=== PATIENT | male | born 1955 | race Caucasian/White ===

== ENCOUNTER 2016-05-02 07:32 | Day surgery (SDC) | payer BC ==
--- NOTE | 2016-04-26 13:31 | HP ---
CC: Dr. Aviles HISTORY AND PHYSICAL: DATE OF PLANNED ADMISSION AND SURGERY: 05/02/16 HISTORY OF PRESENT ILLNESS: Mr. Moreno is a 61-year-old white male who is admitted with a left ureteral calculus for cystoscopy, left ureteroscopy, laser lithotripsy, and left ureteral stent placement. Mr. Moreno is a known stone former, and in January 2012, he required a left ureteroscopy and laser lithotripsy of a left ureteral calculus. He did very well postoperatively. On followup renal ultrasounds, he was noted to have a 5 mm calculus in the upper pole calyx of the left kidney. It was observed and because it was asymptomatic and as the stone did not seem to be large, no treatment was recommended. The patient presented for his routine office followup visit about 2 months ago. Renal ultrasound showed that the calculus that was previously seen in the left kidney was not seen anymore. He was then followed with periodic renal ultrasounds and he was noted to have the 5 to 6 mm calculus located in the proximal left ureter about 5 cm distal to the ureteropelvic junction. Because he was asymptomatic, he was observed. He had another renal ultrasound a week prior to this admission and the stone is still in the same position. He has continued to be asymptomatic. The ultrasound showed associated mild left hydronephrosis. Considering that the stone has been in the same position for at least the last 2 months, it is unlikely for it to drop spontaneously and the plan is for endoscopic stone extraction. PAST MEDICAL HISTORY: Past history is relevant for prostate carcinoma diagnosed in January 2009 and he underwent a robotic radical prostatectomy at [facility] in May 2009. He did very well postoperatively. His PSA has remained undetectable and he does not have any continence problems. The patient is otherwise in excellent health. MEDICATIONS: He is on no chronic medications except the tamsulosin which was started 6 weeks ago to help the stone passage. ALLERGIES: He denies any allergies to medications. He denies any cardiac or pulmonary diseases or symptoms. PHYSICAL EXAMINATION GENERAL: Pleasant, healthy and fit-looking white male. VITAL SIGNS: Blood pressure 130/80. HEART: Regular and rhythmic. No murmurs. LUNGS: Clear. ABDOMEN: Soft. No masses, no tenderness, and no CVA tenderness. EXTERNAL GENITALIA: Normal. IMPRESSION: Minimally symptomatic 5 to 6 mm calculus in the proximal left ureter with mild left hydronephrosis with a stone in the same position for the last 2 months. Past history of prostate carcinoma with good result of radical prostatectomy and no evidence of recurrent disease. PLAN: Considering the stone has been in the same position for the last 2 months , it is unlikely for it to drop spontaneously. The plan is to proceed with a left ureteroscopy and laser lithotripsy, and placement of a left ureteral stent. If the ureteroscopy is found to be difficult due to scarring from his surgery, the plan is for staging the procedure with stent placement first and definitive treatment of the stone at a later date. The above was discussed in detail with the patient. All his questions were answered. [id number]/[facility] #: [id number] JUAN
[~2016-05-02 07:32] MED LIST: Buffered Lidocaine 1% SYR 3ML* 3 ML/SYR SYRINGE INTRADERM ONE; Famotidine IV* 10 MG/ML 2 ML (20 mg) IV ONE
[2016-05-02] MEDS ORDERED: Famotidine IV* 10 MG/ML 2 ML (20 mg) ONE (07:41)
[2016-05-02] MEDS ORDERED: cefTRIAXone(*) 2 GM ADDV.VIAL IVPB ONE (07:41)
[2016-05-02] MEDS ORDERED: Iohexol 180 (CONTRAST) 10 ML SDV IV ONE (08:33)
[2016-05-02] MEDS ORDERED: Midazolam* 1 MG/ML 5 ML VIAL (5 MG) ONE (08:46)
[2016-05-02] MEDS ORDERED: fentaNYL* 50 MCG/ML 2 ML VIAL (100 MCG VIAL) ONE (08:46)
[2016-05-02] MEDS ORDERED: Ondansetron INJ* 2 MG/ML VIAL ONE (08:47)
[2016-05-02] MEDS ORDERED: Propofol* 10 MG/ML 20 ML BTL IV PUSH ONE (08:47)
[2016-05-02] MEDS ORDERED: Dexamethasone IV* 4 MG/ML 1 ML (4 MG) ONE (08:47)
[2016-05-02] MEDS ORDERED: Ketorolac INJ* 30 MG/ML 1 ML VIAL ONE (08:47)
[2016-05-02] MEDS ORDERED: Lidocaine 2% PF * 5 ML VIAL ONE (08:47)
[2016-05-02] MEDS ORDERED: DiMENhydriNATE IV* 50 MG/ML VIAL IV PUSH PRN (09:25)
[2016-05-02] MEDS ORDERED: HYDROmorphone INJ* 1 MG/ML CARPUJECT SYRINGE IV PRN (09:25)
[2016-05-02] MEDS ORDERED: Acetaminophen TAB* 325 MG PO PRN (09:25)
[2016-05-02] MEDS ORDERED: oxyCODONE/Acetamin 5/325 MG* TAB PO PRN (09:25)
--- NOTE | 2016-05-02 10:25 | RAD ---
INDICATION: Left ureteral stent placement . 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 COMPARISON: CT January 13, 2012; retrograde examination January 19, 2012 FINDINGS: 20 seconds of fluoroscopy were provided for the urology department. Fluoroscopic spot imaging of the abdomen were obtained for operative control and show placement of ureteral stent in the upper pole of the duplicated collecting system. Both upper and lower pole moieties were cannulated and show no hydronephrosis. CPT II Codes: 6045F (fluoro time doc)
[2016-05-02 11:03] VITALS: BP 132/99
--- NOTE | 2016-05-03 00:59 | OP ---
DATE OF OPERATION: 05/02/16 [facility] DATE OF : 57 SURGEON: Dr. Bai. ANESTHESIOLOGIST: Dr. Mary Lucia ANESTHESIA: General. PRE-OP DIAGNOSIS: Proximal left ureteral calculus (6 to 7 mm). POST-OP DIAGNOSIS: Partial duplication of left kidney, 6 to 7 mm calculus in ureter of upper pole moiety. OPERATIVE PROCEDURE: 1. Cystoscopy. 2. Left ureteroscopy and laser lithotripsy of proximal left ureteral calculus of upper pole moiety. 3. Left retrograde pyelography and placement of left ureteral stent in upper pole moiety. INDICATION FOR PROCEDURE: Mr. Moreno is a 61-year-old white male who is a known stone former who was noted to have a minimally symptomatic and minimally obstructing 6-7 mm proximal left ureteral calculus. The stone was observed for about 2 months and it remained in the same position. Because of the above history, the fact that the stone has not passed and considering its size, the above procedure was advised and accepted. The patient had a radical prostatectomy for prostate carcinoma several years ago and has done very well without recurrent disease. PATHOLOGY AT CYSTOSCOPY: The penile and bulbar urethra looked normal. The external sphincter looked normal. The prostatic urethra was absent. Examination of the bladder showed normal bladder mucosa. The ureteral orifices looked normal. There were no suspicious bladder lesions seen. On fluoroscopy a radio-opaque calculus was noted at the level of the transverse process of L4. At left ureteroscopy a duplication was noted with the 2 ureters meeting at the midureteral level. The calculus was located in the proximal ureter of the upper pole moiety. The calculus was impacted. It measured about 6 to 7 mm and had the gross appearance of calcium oxalate stone. Left retrograde pyelography showed a dilated upper pole moiety and a non-dilated lower pole moiety. DESCRIPTION OF PROCEDURE: After successful general anesthesia, the patient was placed in the lithotomy position and was prepped and draped for cystoscopy. Cystoscopy was performed. The bladder was inspected and the above findings were noted. In particular, there was a single ureteral orifice on each side. A flexible tip guidewire was then introduced into the left ureter and positioned in the area of the renal pelvis. The distal ureter was then dilated with a 5-Guinean and then a 7-Guinean open-ended catheters. A size #6.5 semirigid tapered ureteroscope was then introduced inside the bladder. A flexible tip basket was introduced through the port of the ureteroscope and the flexible tip was passed inside the left orifice and used as a guide to safely introduce the ureteroscope into the ureter. The ureteral lumen was inspected and the duplication was noted at the midureteral level. The ureteroscope was then introduced into the ureter of the upper pole moiety. The calculus was identified. The basket was then introduced beyond the stone and was deployed to prevent proximal migration of the stone. A size 550 micron laser was then introduced through the other port of the ureteroscope and was used to fragment the stone in several small fragments. The fragments were then extracted with the basket. Inspection of the ureteral wall showed no evidence of any injury. There were minimal stone fragments noted in the ureter, but it was felt they should pass spontaneously. Retrograde pyelography was then performed clearly demonstrating the duplication. A size 6-Guinean stent was then placed with the proximal end coning in the pelvis of the upper pole moiety and the distal-end coning inside the bladder. There was no evidence of any extravasation and there was good drainage of contrast. The patient tolerated the procedure well and left the operating room in good condition. The plan is to leave the stent in place for about 6 days. It will be removed in the office under local anesthesia. CC: Dr. Byrd* [id number]/[facility] #: [id number] MTDOscar
== END 2016-05-02 11:33 | disposition home or self-care (01) ==
LOC: OR 07:32
PROVIDERS: ATTEND Urology
DX: N20.1 Calculus of ureter (principal); Z85.46 Personal history of malignant neoplasm of prostate
CPT/HCPCS: 74420; 82365; 88300; C1876; J0696; J1100; J1885; J2250; J2405; J2704; J3010

== ENCOUNTER 2018-01-06 14:42 | Observation (INO) | payer BC ==
[2018-01-06] MEDS ORDERED: Morphine INJ* 2 MG/ML 1 ML SYRINGE (TWO MG - NEW SYRINGE VERSION) IV ONE (16:45)
[2018-01-06 16:58] LABS: Urine Appearance Cloudy; Urine Bacteria Absent (Absent); Urine Bilirubin Negative (Negative); Urine Blood 3+ (Negative); Urine Color Amber; Urine Glucose Negative (Negative); Urine Ketones Trace (Negative); Urine Nitrite Negative (Negative); Urine Protein 2+(100 mg/dL) (Negative); Urine Red Blood Cell 3+(>10/hpf) (Absent); Urine Urobilinogen Negative (Negative); Urine White Blood Cell 3+(>20/hpf) (Absent)
[2018-01-06] MEDS ORDERED: Morphine VIAL* 4 MG/ML VIAL (1 ml vial) IV ONE (16:58)
[2018-01-06 17:03] LABS: ABS Basophils 0 10^3/ul (0-0.2); ABS Eosinophils 0 10^3/ul (0-0.6); ABS Lymphocytes 0.7 10^3/ul (1.0-4.8); ABS Monocytes 0.7 10^3/ul (0-0.8); ABS Neutrophils 5.5 10^3/ul (1.5-7.7); ABS Nucleated RBC 0 10^3/ul; Eosinophil % 0.1 % (0-6); Hematocrit 36 % (42-52); Hemoglobin 12.4 g/dl (14.0-18.0); Lymphocyte % 9.6 % (25-47); Mean Corpuscular HGB Conc 35 g/dl (31-36); Mean Corpuscular Hemoglobin 32 pg (27-31); Mean Corpuscular Volume 93 fL (80-94); Mean Platelet Volume 6.5 fL (7.4-10.4); Nucleated Red Blood Cells % 0.1; Platelet Count 221 10^3/ul (150-450); Red Blood Count 3.89 10^6/ul (4.00-5.40); Red Cell Distribution Width 14 % (10.5-15); White Blood Count 6.8 10^3/ul (3.5-10.8)
--- NOTE | 2018-01-06 17:21 | ED ---
GI/ HPI - HPI Summary HPI Summary: Patient is a 62 y/o M w/ c/o right flank pain. He had a known 3.5 mm kidney stone to the right. Patient reports that he went to see Dr. Bai when he began to experience hematuria three weeks ago and he states that kidney stone was not present anymore. Patient notes that he has been experiencing intermittent and tolerable pain until last night, when pain exacerbated. Pain is reported to radiate to RLQ. On triage, pain is rated 8/10, it is noted that alieve, tylenol, and heating pad improve pain, nothing is noted to aggravate Sx , and it is reported that patient took Alieve at 1400 and 650mg tylenol [employer]. Home medications and allergies are reviewed. Patient denies fever, chills, ORNELAS, ear pain, sore throat, blurred vision, double vision, neck pain, CP, SOB, back pain, dysuria, blood in the stool, constipation, edema, bruising, rashes. No anxiety and depression reported. - History of Current Complaint Chief Complaint: EDFlankPain Stated Complaint: KIDNEY PAIN Hx Obtained From: Patient Onset/Duration: Started Days Ago - onset last night, Still Present Timing: Constant, Lasting Days - onset last night Severity: Severe - 8/10 Current Severity: Severe - 8/10 Pain Intensity: 8 Location of Pain: Flank - right Pain Radiates to: RLQ Associated Signs and Symptoms: Positive: Hematuria, Flank Pain - right, Abdominal Pain - RLQ, Other: - denies ORNELAS, ear pain, sore throat, blurred vision , double vision, neck pain, SOB, constipation, edema, bruising, rashes. No anxiety and depression reported.. 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 2009 Hx Chemotherapy: No Hx Radiation Therapy: No - Surgical History Surgery Procedure, Year, and Place: prostatectomy 2011; appe; kidney stone Hx Anesthesia Reactions: No - Immunization History Immunizations Up to Date: Yes Infectious Disease History: No Infectious Disease History: Denies: History Other Infectious Disease, Traveled Outside the [place] in Last 30 Days - Family History Known Family History: Negative: Blood Disorder - Social History Alcohol Use: Daily Alcohol Amount: 1-2 (beer or wine) Substance Use Type: Reports: None Hx Tobacco Use: No Smoking Status (MU): Never Smoked Tobacco Review of Systems Negative: Fever, Chills Positive: Other - NEGATIVE: double vision . Negative: Blurred Vision Negative: Sore Throat, Ear Ache Negative: Chest Pain Negative: Shortness Of Breath Positive: Abdominal Pain Positive: flank pain - right , hematuria, other - NEGATIVE: blood in stool, constipation . Negative: dysuria Positive: Other - NEGATIVE: back, neck pain . Negative: Edema Negative: Rash, Bruising Negative: Headache Negative: Anxious, Depressed All Other Systems Reviewed And Are Negative: No Physical Exam - Summary Physical Exam Summary: Appearance: Alert, conversive, nontoxic appearing Skin: Warm, dry, no mottling, no rashes, no contusions HEENT: EOMI, PERRL, moist mucous membranes Neck: No masses on the neck, supple Respiratory: Clear to auscultation, breath sounds present, no rales, no rhonchi , no wheezes Cardiovascular: RRR, pulses are symmetrical in both lower and upper extremities Abdomen: Soft, mild RLQ tenderness. Bowel Sounds: Present Musculoskeletal: No CVA tenderness, no obvious deformity, moving all extremities in a grossly normal manner Neurological: A&Ox3, CN II-XII Intact, moving all extremities symmetrically Psychiatric: Normal affect and mood Triage Information Reviewed: Yes Vital Signs On Initial Exam: Initial Vitals Temp Pulse Resp BP Pulse Ox 97.4 F 69 15 150/104 99 01/06/18 15:01 01/06/18 15:01 01/06/18 15:01 01/06/18 15:01 01/06/18 15:01 Vital Signs Reviewed: Yes Diagnostics - Vital Signs Vital Signs Temp Pulse Resp BP Pulse Ox 01/06/18 17:01 16 01/06/18 15:01 97.4 F 69 15 150/104 99 - Laboratory Lab Results: Lab Results 01/06/18 01/06/18 Range/Units 16:39 16:54 WBC 6.8 (3.5-10.8) 10^3/ul RBC 3.89 L (4.00-5.40) 10^6/ul Hgb 12.4 L (14.0-18.0) g/dl Hct 36 L (42-52) % MCV 93 (80-94) fL MCH 32 H (27-31) pg MCHC 35 (31-36) g/dl RDW 14 (10.5-15) % Plt Count 221 (150-450) 10^3/ul MPV 6.5 L (7.4-10.4) fL Neut % (Auto) 80.3 (38-83) % Lymph % (Auto) 9.6 L (25-47) % [place] % (Auto) 9.6 H (0-7) % Eos % (Auto) 0.1 (0-6) % Baso % (Auto) 0.4 (0-2) % Absolute Neuts (auto) 5.5 (1.5-7.7) 10^3/ul Absolute Lymphs (auto) 0.7 L (1.0-4.8) 10^3/ul Absolute Monos (auto) 0.7 (0-0.8) 10^3/ul Absolute Eos (auto) 0 (0-0.6) 10^3/ul Absolute Basos (auto) 0 (0-0.2) 10^3/ul Absolute Nucleated RBC 0 10^3/ul Nucleated RBC % 0.1 Urine Color Stephanie Urine Appearance Cloudy Urine pH 6.0 (5-9) Ur Specific [place] 1.030 (1.010-1.030) Urine Protein 2+(100 mg/dl) A (Negative) Urine Ketones Trace A (Negative) Urine Blood 3+ A (Negative) Urine Nitrate Negative (Negative) Urine Bilirubin Negative (Negative) Urine Urobilinogen Negative (Negative) Ur Leukocyte Esterase Negative (Negative) Urine WBC (Auto) 3+(>20/hpf) A (Absent) Urine RBC (Auto) 3+(>10/hpf) A (Absent) Urine Bacteria Absent (Absent) Urine Glucose Negative (Negative) Result Diagrams: 01/06/18 16:54 01/06/18 16:54 Lab Statement: Any lab studies that have been ordered have been reviewed, and results considered in the medical decision making process. Re-Evaluation - Re-Evaluation First Eval Re-Evaluation Time: 18:00 Change: Worse Comment: Patient reports worse pain, CT will be ordered. GIGU Course/Dx - Course Course Of Treatment: Patient is a 62 y/o M w/ c/o right flank pain. He had a known 3.5 mm kidney stone to the right. Patient reports that he went to see Dr. Bai when he began to experience hematuria three weeks ago and he states that kidney stone was not present anymore. Patient notes that he has been experiencing intermittent and tolerable pain until last night, when pain exacerbated. Pain is reported to radiate to RLQ. On physical exam, mild RLQ tenderness noted. UA showed 2+ protein, trace ketones, 3+ blood, 3+ WBC, 3+ RBC , no bacteria or glucose. Labs showed lipase 34, glucose 138, lactic acid 1.2, creatinine 1.25, RBC 3.89, Hgb 12.4. Patient is signed out to Dr. Gill pending CT abd/pel results. Dx of kidney stone, right. - Diagnoses Provider Diagnoses: Right ureteral stone, Renal calculus Discharge - Sign-Out/Discharge Documenting (check all that apply): Sign-Out Patient Signing out patient TO: Kaykay Gill Receiving patient FROM: Malgorzata Moreno - Discharge Plan Condition: Fair Disposition: ADMITTED TO [facility] - Billing Disposition and Condition Condition: FAIR Disposition: Admitted to [facility] - Attestation Statements Document Initiated by Scribe: Yes Documenting Scribe: Beck Thurman Provider For Whom Scribe is Documenting (Include Credential): Malgorzata Moreno MD Scribe Attestation: Beck Desai , scribed for Malgorzata Moreno MD on 01/07/18 at 1210. Scribe Documentation Reviewed: Yes Provider Attestation: The documentation as recorded by the scribe, Beck Thurman accurately reflects the service I personally performed and the decisions made by me, Malgorzata Moreno MD
[2018-01-06 17:26] LABS: Albumin 3.8 g/dL (3.2-5.2); Albumin/Globulin Ratio 0.7 (1-3); BUN/Creatinine Ratio 12.8 (8-20); Calcium 9.5 mg/dL (8.6-10.3); EGFR African American 71.1 (>60); EGFR Non-African American 58.7 (>60); Globulin 5.4 g/dL (2-4); Potassium 3.8 mmol/L (3.5-5.0); Total Bilirubin 0.6 mg/dL (0.2-1.0); Total Protein 9.2 g/dL (6.4-8.9)
[2018-01-06] MEDS ORDERED: HYDROmorphone INJ* 2 MG/ML CARPUJECT SYRINGE IV SLOW PU ONE (17:39)
[2018-01-06] MEDS ORDERED: HYDROmorphone INJ1* 1 MG/ML SYRINGE ONE (17:40)
[2018-01-06] MEDS ORDERED: NS 0.9% 1000 ML* 1,000 ML IV ONE (17:40)
--- NOTE | 2018-01-06 19:15 | ED ---
Progress - Progress Note Progress Note: Pt signed out from Dr. Moreno to Dr. Gill pending abdomen/pelvis CT. His Abdomen/pelvis CT revealed: Moderate right hydronephrosis caused by 4 mm calculus in the right mid ureter. ED physician has reviewed this imaging report. Dx: right uretal stone, renal calculus Re-Evaluation - Re-Evaluation First Eval Re-Evaluation Time: 19:30 Change: Unchanged Comment: Pt rates pain as 6/10 sometimes shooting up to 9/10. Course/Dx - Course Course Of Treatment: t signed out from Dr. Moreno to Dr. Gill pending abdomen/ pelvis CT. His Abdomen/pelvis CT revealed: Moderate right hydronephrosis caused by 4 mm calculus in the right mid ureter. Dx: right uretal stone, renal calculus. Pt will be admitted to Dr. Bai. - Diagnoses Provider Diagnoses: Right ureteral stone, Renal calculus - Provider Notifications Discussed Care Of Patient With: Faraz Bai Time Discussed With Above Provider: 20:00 Instructed by Provider To: Admit As Inpatient - Updated Dr. Bai on patient' s pain level. Dr. Bai wants the pt to come to the Operating room but it is booked. At 20:20: tried to page Dr. Veloz, hospitalist. 21:20-pt will be admitted to Dr. Bai. Discharge - Sign-Out/Discharge Documenting (check all that apply): Patient Departure - Admit - Discharge Plan Condition: Fair Disposition: ADMITTED TO [facility] - Attestation Statements Document Initiated by Scribe: Yes Documenting Scribe: Jason Musa Provider For Whom Scribe is Documenting (Include Credential): Kaykay Gill MD Scribe Attestation: IJason, scribed for Kaykay Gill MD on 01/06/18 at 2208.
[2018-01-06] MEDS ORDERED: cefTRIAXone(*) 2 GM in NS 0.9% 100 ML* 100 ML IVPB ONE (19:35)
[2018-01-06] MEDS ORDERED: fentaNYL* 50 MCG/ML 2 ML VIAL (100 MCG VIAL) IV SLOW PU ONE (20:23)
[2018-01-06] MEDS ORDERED: Ketorolac INJ* 15 MG/ML 1 ML VIAL IV PUSH ONE (20:23)
[2018-01-06] MEDS ORDERED: HYDROmorphone INJ1* 1 MG/ML SYRINGE IV SLOW PU PRN (21:23)
[2018-01-06] MEDS ORDERED: Ondansetron INJ* 2 MG/ML VIAL IV PRN (21:23)
[2018-01-06] MEDS ORDERED: Lactated Ringers 1000 ML Bag* 1,000 ML IV SCH (22:00)
[2018-01-07] MEDS ORDERED: Lidocaine 2% PF * 5 ML VIAL ONE (06:32)
[2018-01-07] MEDS ORDERED: Propofol* 10 MG/ML 20 ML BTL IV PUSH ONE (06:32)
[2018-01-07] MEDS ORDERED: Midazolam* 1 MG/ML 2 ML VIAL (2 MG) ONE (06:35)
[2018-01-07] MEDS ORDERED: fentaNYL* 50 MCG/ML 2 ML VIAL (100 MCG VIAL) ONE (06:35)
[2018-01-07] MEDS ORDERED: Iohexol 300 (CONTRAST) 100 ML SDV IV ONE (07:14)
[2018-01-07] MEDS ORDERED: Iohexol 180 (CONTRAST) 10 ML SDV IV ONE (07:24)
[2018-01-07] MEDS ORDERED: fentaNYL* 50 MCG/ML 2 ML VIAL (100 MCG VIAL) IV PRN (07:41)
[2018-01-07] MEDS ORDERED: DiMENhydriNATE IV* 50 MG/ML VIAL IV PUSH PRN (07:41)
[2018-01-07] MEDS ORDERED: Naloxone* 0.4 MG/ML 1 ML VIAL IV PRN (07:41)
[2018-01-07] MEDS ORDERED: Ondansetron INJ* 2 MG/ML VIAL ONE (07:45)
[2018-01-07 08:49] VITALS: BP 135/88
[2018-01-07] MEDS ORDERED: Ibuprofen TAB* 600 MG ONE (09:06)
--- NOTE | 2018-01-07 14:43 | HP ---
HISTORY AND PHYSICAL: DATE OF ADMISSION: 01/06/18 HISTORY OF PRESENT ILLNESS: Mr. Moreno is a 62-year-old white male who is admitted with a proximal right ureteral calculus for cystoscopy and placement of right ureteral stent. Mr. Silva is a known stone former and in January 2012 had required a left ureteroscopy, and laser lithotripsy for a left ureteral calculus. He was known to have a residual 4 to 5 mm calculus in the right kidney. He presented to my office about 3 weeks ago with painless gross hematuria. On office renal ultrasound, the stone that was known to be located in the right kidney was not visualized indicating the calculus had dropped into the ureter and is the likely cause of the gross hematuria. At that time, there was no associated hydronephrosis and the patient was totally asymptomatic. It was decided that to manage him conservatively. He was doing well, being pain free, until earlier today when he developed a severe episode of right renal colic. There was no associated fever or chills. He presented to the emergency room for management. In the emergency room, CBC showed WBC normal count of 6,800 and the normal differential. His chemistries showed a slightly elevated serum and creatinine of 1.25. His serum calcium was 9.5. His urine analysis was positive for blood , and for esterase, but negative nitrite. Urine culture was sent. The patient then had a noncontrast CT of the abdomen and pelvis, which showed a 5 mm calculus in the proximal right ureter associated with the [id number] right hydronephrosis. No other abnormalities were noted. PAST MEDICAL HISTORY AND SYSTEM REVIEW: The patient is very healthy. He was diagnosed in 2009 with prostate carcinoma and underwent a radical prostatectomy in May 2009. He has done very well and his most recent PSA was undetectable at 0.0. The patient is in excellent health otherwise. He has no cardiac or pulmonary diseases. He is a nonsmoker. He has no known allergies. PHYSICAL EXAMINATION GENERAL: Pleasant white male, who was in severe pain on admission, but now after pains meds looks more comfortable. VITAL SIGNS: Blood pressure 150/90, pulse of 80. He is afebrile. HEART: Regular and rhythmic. No murmurs. LUNGS: Clear. ABDOMEN: Soft. There is moderate tenderness in the right flank. Rest of the examination is normal. EXTREMITIES: Normal. IMPRESSION: 1-Right renal colic secondary to a 5 mm calculus in the proximal right ureter. The calculus has been likely in the same position for the last 3 weeks and at this time it is unlikely for it to drop spontaneously. 2-History of prostate carcinoma, status post radical prostatectomy with good result, no recurrent disease. PLAN: Considering the patient had pyuria, although he does not have any signs of urinary tract infection or of pyelonephritis, the plan is for placement of a right ureteral stent in preparation of definitive treatment of the stone. Ceftriaxone 2 g IV was given on admission. The patient understands that he will require another procedure for definitive treatment of the stone. All his questions were answered. [id number]/[facility] #: [id number] JUAN
--- NOTE | 2018-01-07 22:38 | OP ---
CC: Kelton Byrd MD * DATE OF OPERATION: 01/07/18 - ROOM #414 DATE OF : 57 SURGEON: Faraz Bai MD ANESTHESIOLOGIST: Dr. Peaccok. ANESTHESIA: General. PRE-OP DIAGNOSES: 1. Right renal colic. 2. Proximal right ureteral calculus. POST-OP DIAGNOSES: 1. Right renal colic. 2. Proximal right ureteral calculus. OPERATIVE PROCEDURE: Cystoscopy, right retrograde pyelography and placement of right ureteral stent. INDICATIONS FOR PROCEDURE: Mr. Moreno is a 62-year-old white male who is a known stone former and who presented to my office three weeks ago with an episode of gross painless hematuria. He had renal ultrasound in the office, which showed that the 5 mm calculus which was known to be located in his right kidney is not visualized in the kidney, indicating it had dropped into the ureter. Because the patient was asymptomatic, he was managed conservatively. He presented last night to the emergency room with severe right renal colic that required multiple pain medications for control. A noncontrast CT of the abdomen and pelvis showed a 5-mm calculus in the proximal right ureter associated with mild to moderate right hydronephrosis. His urinalysis was positive for blood and esterase, negative otherwise. He was afebrile and his white count was normal. The patient was given 2 g of ceftriaxone in the emergency room, was admitted for IV hydration and pain control and is taken to the operating room this morning for placement of a ureteral stent. PATHOLOGY AT CYSTOSCOPY: The penile and bulbar urethra looked normal. There was absence of the prostatic urethra consistent with history of radical prostatectomy for prostate carcinoma. Examination of the bladder showed no suspicious lesions. There were no lesions suspicious of carcinoma in situ and no papillary lesion seen. The ureteral orifices looked normal. The trigone was somewhat distorted due to the radical prostatectomy. Upon right retrograde pyelography, there was moderate hydronephrosis noted. DESCRIPTION OF PROCEDURE: After successful general anesthesia, the patient was placed in the lithotomy position and was prepped and draped for a cystoscopy. Cystoscopy was performed, the bladder was carefully inspected and the above findings were noted. A hybrid flexible tip guidewire was introduced into the right orifice and positioned in the area of the renal pelvis. Retrograde pyelography was then performed. A size 6-Hong Konger stent was then placed with the proximal end coiling in the collecting system and the distal end coiling inside the bladder. The urine that drained from the right kidney following the stent placement looked concentrated and somewhat cloudy. The plan is to observe the patient in the PACU. If he remained stable, he will be discharged home on Bactrim. A KUB will be obtained before discharge. Definitive treatment of the stone will depend on its position on the KUB. [id number]/[facility] #: [id number] JUAN
--- NOTE | 2018-01-11 06:01 | DS ---
CC: Dr. Byrd.* DISCHARGE SUMMARY: DATE OF ADMISSION: 01/06/18 DATE OF DISCHARGE: 01/07/18 FINAL DIAGNOSIS: 1. Proximal right ureteral calculus. 2. Status post radical prostatectomy for prostate carcinoma. OPERATIONS: 1. Cystoscopy. 2. Right retrograde pyelography and placement of right ureteral stent on . HOSPITAL COURSE: Mr. Moreno is a 62-year-old white male who presented to the emergency room on the day of his admission with symptoms of right renal colic. He was previously evaluated in the office 3 weeks earlier because of gross hematuria and at that time his renal ultrasound showed that the known 5-mm calculus that was being observed in the right kidney was not visualized in the kidney indicating it had dropped into the ureter. He was managed conservatively. He presented to the emergency room today with Rt renal colic. He did not have any fever or chills. His urinalysis was positive for blood and for esterase. His white count was normal and he was afebrile. Noncontrast CT of the abdomen and pelvis showed a 5-mm calculus in the proximal right ureter associated with moderate hydronephrosis. The patient was admitted overnight for hydration and pain control, and was started on IV ceftriaxone. He was taken to the operating room the following morning and underwent a cystoscopy and placement of a right ureteral stent. He did very well. He was discharged home in good condition and placed on a one' s week course of Bactrim DS one tablet twice a day pending the result of the urine culture. A KUB will be obtained before his discharge to plan for definitive treatment of the stone. Instructions were given for followup care. [id number]/[facility] #: [id number] JUAN
== END 2018-01-07 09:22 | disposition home or self-care (01) ==
LOC: ED 14:42 → MED 21:17
PROVIDERS: ADMIT Urology; ATTEND Urology
DX: N20.1 Calculus of ureter (principal); Z85.46 Personal history of malignant neoplasm of prostate; R10.84 Generalized abdominal pain
CPT/HCPCS: 36415; 74018; 74176; 74420; 80053; 81003; 81015; 83605; 83690; 85025; 87086; 93005; 96374; 96375; 96376; 99284; A9270-GY; C1876; G0378; J0696; J1170; J1885; J2250; J2270; J2405; J2704; J3010

== ENCOUNTER → 2019-01-04 | Day surgery (SDC) | payer BC ==
[~2019-01-04] MED LIST changes: +Acetaminophen TAB* 325 MG PO PRN; -Buffered Lidocaine 1% SYR 3ML* 3 ML/SYR SYRINGE INTRADERM ONE; +Buffered Lidocaine 1% SYRIN* 1 ML/SYRINGE INTRADERM ONE; -Famotidine IV* 10 MG/ML 2 ML (20 mg) IV ONE; +Ibuprofen TAB* 200 MG PO PRN; +Lactated Ringers 1000 ML Bag* 1,000 ML IV SCH; +Lidocaine 1% INJ* 10 MG/ML 30 ML SDV ONE; +Lidocaine 2% PF * 5 ML VIAL ONE; +Midazolam* 1 MG/ML 5 ML VIAL (5 MG) ONE; +Naloxone* 0.4 MG/ML 1 ML VIAL IV PRN; +Propofol* 10 MG/ML 20 ML BTL ONE; +ceFAZolin 2 GM in NS PREMIX(*) 2 GM/100 ML BAG IVPB ONE; +fentaNYL* 50 MCG/ML 2 ML VIAL (100 MCG VIAL) ONE
--- NOTE | 2019-01-04 08:59 | OP ---
Operative Report - Blank - Operative Report Date of Operation: 01/04/19 Note: PREOP DX:WALEDNSTROM MACROGLOBULINEMIA POSTOP DX:SAME PROC:POWERPORT PLACEMENT SURG:MECENAS ASSIST:NONE ANES:LOCAL/MAC;RICH EBL:<10ML IVF:CRYSTALLOID SPEC:NONE DRAIN:NONE COMPL:NONE COND:STABLE TO PACU FINDINGS: ABOVE
[2019-01-04 09:48] VITALS: BP 125/67
--- NOTE | 2019-01-04 21:04 | OP ---
CC: Lona Cheek MD; Kelton Byrd MD * DATE OF OPERATION: 01/04/19 - [facility] DATE OF : 57 SURGEON: Lisandro Cancino MD. DIRECTOR OF HOTEL OPERATIONS: None. ANESTHESIOLOGIST: Luke Patel DO. ANESTHESIA: Local MAC. PRE-OP DIAGNOSIS: Waldenstrom macroglobulinemia. POST-OP DIAGNOSIS: Waldenstrom macroglobulinemia. OPERATIVE PROCEDURE: PowerPort placement, left subclavian. ESTIMATED BLOOD LOSS: Less than 10 mL. IV FLUIDS: Crystalloid. SPECIMEN: None. DRAINS: None. COMPLICATIONS: None. COUNTS: The instrument, needle, and sponge counts were correct. DESCRIPTION OF PROCEDURE: The patient was brought to the operating room and placed on the table supine. Sequential compression devices were placed in both lower extremities. The patient was administered intravenous sedation. He was positioned and padded appropriately. He was prepped and draped in the usual sterile fashion. He received appropriate intravenous antibiotics. A time-out was performed. Local anesthetic was infiltrated into the skin and soft tissue for a left subclavian approach. An 18-gauge needle was used to access the left subclavian vein on the first pass. The guidewire was placed into the superior vena cava and its position confirmed under fluoroscopy. Additional local anesthetic was infiltrated into the upper left chest to create the pocket. Incision was created with a 15 blade scalpel. The subcutaneous tissues were divided with cautery. Next, a counter incision at the guidewire insertion site was made with a scalpel and then an 8-Kazakh PowerPort was back tunneled from the site to the pocket. A peel-away sheath and dilator were advanced over the guidewire into the superior vena cava under fluoroscopy. Dilator and guidewire were removed and the catheter was advanced with its tip at the atriocaval junction. The catheter was cut to appropriate length and connected to the port, which was placed into the pocket and secured with two 2-0 Prolene sutures. The port was accessed, mony and flushed easily and ultimately was flushed with heparinized saline. The pocket was closed in two layers with 3-0 Vicryl for the subcutaneous tissue, 4-0 Monocryl for the skin. Counter incision was closed with 4-0 Monocryl. DermaFlex was applied to both sites. The patient tolerated the procedure well and was transferred to the Recovery stable. [id number]/[facility] #: [id number] JUAN
== END | disposition home or self-care (01) ==
LOC: OR 05:46
PROVIDERS: ATTEND Surgery
DX: C88.0 Waldenstrom macroglobulinemia (principal); D47.2 Monoclonal gammopathy; Z85.46 Personal history of malignant neoplasm of prostate; Z87.442 Personal history of urinary calculi
CPT/HCPCS: 76000; C1788; J0690; J1642; J2250; J2704; J3010